=== PATIENT | male | born 1960 | race Caucasian/White ===

== ENCOUNTER → 2016-12-05 | Outpatient (CLI) | payer OTHER ==
--- NOTE | 2016-12-05 16:57 | US ---
EXAMINATION TYPE: US kidneys/renal and bladder DATE OF EXAM: 12/05/2016 COMPARISON: NONE CLINICAL HISTORY: M54.9 DORSALGIA. Patient stated has polycystic kidneys, prior recurrent UTI and sma ll urinary stream with history of prominent prostate gland. EXAM MEASUREMENTS: Right Kidney: 11.5 x 7.8 x 6.2 cm Left Kidney: 11.4 x 7.3 x 6.6 cm Post Void Residual Volume: 3.7 mL Right Kidney: multiple renal cysts throughout kidney with largest seen inferiorly = 5.6 x 5.5 x 5.2cm Left Kidney: multiple renal cysts throughout kidney with largest measured at lower pole = 5.6 x 4.5 x 4.5cm; couple of small hyperechoic foci seen superiorly may be calcified vessel wall. Bladder: not fully distended and prominent prostate is noted inferoposteriorly. Bilateral Jets seen: yes, but only very small right jet is noted compared to left jet Normal Post Void Residual: Yes IMPRESSION: Numerous bilateral renal cortical cysts. No sign of renal obstruction. Possible calculi in the upper pole left kidney.
== END | disposition home or self-care (01) ==
LOC: RADUSWWP 15:50
PROVIDERS: ATTEND Family Medicine
DX: N28.1 Cyst of kidney, acquired (principal)
CPT/HCPCS: 76770

== ENCOUNTER → 2016-12-22 | Outpatient (CLI) | payer OTHER ==
[2016-12-22 17:49] LABS: Blood Urea Nitrogen 14 mg/dL (9-20); Non-African American GFR(MDRD) 56 (>60 ml/min/1.73 sqM)
--- NOTE | 2016-12-22 19:36 | CT ---
EXAMINATION TYPE: CT abdomen pelvis w con DATE OF EXAM: 12/22/2016 COMPARISON: NONE HISTORY: RENAL CYSTS FOUND ON US. CT DLP: 453.0 mGycm Automated exposure control for dose reduction was used. TECHNIQUE: Helical acquisition of images was performed from the lung bases through the pelvis. CONTRAST: Performed with Oral Contrast and with IV Contrast, patient injected with 100 mL of Omnipaque 300. FINDINGS: Lung bases are clear of consolidation. There is no pleural effusion. Liver shows no focal defect. Cody e ducts are not dilated. There is no sign of a pancreatic mass. Spleen appears normal. There is no adrenal mass. There are numerous bilateral renal cortical cysts. The largest measures 6 cm on the right kidney. The re is no retroperitoneal adenopathy. There is curvilinear calcification on the lateral aspect of a la rge cyst on the lateral left kidney. There is no evidence of the solid renal mass. There is no ascites. I see no intestinal wall thickening. There are no dilated loops. Bladder distend s smoothly. There is no sign of a pelvic mass. Prostate is large and measures 5 cm. Appendix appears normal. There is no sign of a bowel obstruction. I see no bony destructive process. There is narrowin g of L5-S1 disc space. There is linear density in the left inguinal region consistent with hernia surgery. There is no evide nce of a hernia. IMPRESSION: NUMEROUS BILATERAL RENAL CORTICAL CYSTS CONSISTENT WITH ADULT TYPE POLYCYSTIC KIDNEY DISEASE. NO ELEN L OBSTRUCTION. THERE IS SOME CURVILINEAR CALCIFICATION ON THE LATERAL ASPECT OF THE LARGEST LEFT ELEN L CORTICAL CYST THAT IS OF DOUBTFUL SIGNIFICANCE. NO HYDRONEPHROSIS. ENLARGED PROSTATE.
== END | disposition home or self-care (01) ==
LOC: RADCTMAIN 17:11
PROVIDERS: ATTEND Urology
DX: N28.1 Cyst of kidney, acquired (principal); N40.1 Benign prostatic hyperplasia with lower urinary tract symptoms
CPT/HCPCS: 82565; 84520; 74177; 36415; Q9967

== ENCOUNTER → 2018-02-13 | Outpatient (CLI) | payer OTHER ==
[2018-02-13 11:22] LABS: Basophils % (A) 1 %; Eosinophils # (A) 0.1 k/uL (0-0.7); Eosinophils % (A) 1 %; HCT 42.2 % (39.0-53.0); Lymphocytes # (A) 1.5 k/uL (1.0-4.8); Lymphocytes % (A) 31 %; MCV 90.8 fL (80.0-100.0); Mean Platelet Volume 6.9; Monocytes # (A) 0.3 k/uL (0-1.0); Monocytes % (A) 7 %; Neutrophils # (A) 2.7 k/uL (1.3-7.7); Neutrophils % (A) 58 %; Platelet Count 194 k/uL (150-450); RBC 4.65 m/uL (4.30-5.90); RDW 13.1 % (11.5-15.5); WBC 4.7 k/uL (3.8-10.6)
[2018-02-13 11:37] LABS: ALT 29 U/L (21-72); AST 20 U/L (17-59)
[2018-02-13 11:54] LABS: T4, Free (Free Thyroxine) 0.89 ng/dL (0.78-2.19)
--- NOTE | 2018-02-14 20:57 | MR ---
EXAMINATION TYPE: MR brain wo/w con DATE OF EXAM: 02/13/2018 COMPARISON: NONE HISTORY: Atypical Migraine Headache per order. Memory loss and cognitive impairment with bilateral he aring loss and left-sided numbness per patient. TECHNIQUE: Multiplanar, multisequence images of the brain and brainstem is performed without and with IV contras t, utilizing 7 mL intravenous Gadavist . FINDINGS: Diffusion weighted images demonstrate no evidence of a recent infarct or other diffusion ab normality. There is no extra-axial fluid collection or significant white matter signal abnormality. The ventricular system and cisternal spaces are normal in size and appearance. The brain volume is age appropriate. Midline structures demonstrate normal morphology. The craniocervical junction appears within normal limits. Post contrast images demonstrate no abnormal enhancement. The dural venous sinuses appear pa tent. The visualized sinuses are clear and the globes are intact. IMPRESSION: No significant finding is seen to account for patient's symptoms.
== END | disposition home or self-care (01) ==
LOC: RADMRIMAIN 10:07
PROVIDERS: ATTEND Psychiatry & Neurology Neurology
DX: G43.009 Migraine without aura, not intractable, without status migrainosus (principal); L71.8 Other rosacea; B35.1 Tinea unguium; L85.3 Xerosis cutis; R41.89 Other symptoms and signs involving cognitive functions and awareness
CPT/HCPCS: 84439; 82607; 84443; 84450; 84460; 85025; 70553; 36415; A9581

== ENCOUNTER 2018-07-31 15:03 | Emergency (ER) | payer OTHER ==
[2018-07-31 15:18] VITALS: BP 141/87; PULSE 84; RESP 18; TEMP 98
--- NOTE | 2018-07-31 15:55 | ED ---
General Adult HPI - General Chief complaint: Recheck/Abnormal Lab/Rx Stated complaint: Drug testing Time Seen by Provider: 07/31/18 15:15 Source: patient, RN notes reviewed, old records reviewed Mode of arrival: ambulatory Limitations: no limitations - History of Present Illness Initial comments: 49-year-old male patient no pertinent past medical history presents ED for a drug test after an accident at work. Patient reportedly dropped a pallet of materials and per [employer] policy he has to come get drug tested. Pt did not suffer any injury. Pt has no other complaints. Systemic: Pt denies fatigue, myalgia, fever/chills, rash. Pt denies weakness, night sweats, weight loss. Neuro: Pt denies headache, visual disturbances, syncope or pre-syncope. HEENT: Pt denies ocular discharge or irritation, otalgia, rhinorrhea, pharyngitis or notable lymphadenopathy. Cardiopulmonary: Pt denies chest pain, SOB, heart palpitations, dyspnea on exertion. Abdominal/GI: Pt denies abdominal pain, n/v/d. : Pt denies dysuria, burning w/ urination, frequency/urgency. Denies new onset urinary or bowel incontinence. MSK: Pt denies myalgia, loss of strength or function in extremities. Neuro: Pt denies new onset weakness, paresthesias. - Related Data Home Medications Medication Instructions Recorded Confirmed No Known Home Medications 03/02/15 03/06/15 Allergies Allergy/AdvReac Type Severity Reaction Status Date / Time No Known Allergies Allergy Verified 03/06/15 09:36 Review of Systems ROS Statement: Those systems with pertinent positive or pertinent negative responses have been documented in the HPI. ROS Other: All systems not noted in ROS Statement are negative. Past Medical History Past Medical History: GI Bleed History of Any Multi-Drug Resistant Organisms: None Reported Past Surgical History: Orthopedic Surgery Past Anesthesia/Blood Transfusion Reactions: No Reported Reaction Smoking Status: Never smoker Past Alcohol Use History: Rare Past Drug Use History: None Reported - Past Family History Mother Family Medical History: Cancer General Exam - General Exam Comments Initial Comments: Constitutional: NAD, AOX3, Pt has pleasant affect. HEENT: NC/AT, trachea midline, neck supple, no lymphadenopathy. Posterior pharynx non erythematous, without exudates. External ears appear normal, without discharge. Mucous membranes moist. Eyes PERRLA, EOM intact. There is no scleral icterus. No pallor noted. Cardiopulmonary: RRR, no murmurs, rubs or gallops, no JVD noted. Lungs CTAB in anterior and posterior martin. No peripheral edema. Abdominal exam: Abdomen soft and non-distended. Abdomen non-tender to palpation in all 4 quadrants. Bowel sounds active in LLQ. No hepatosplenomegaly. No ecchymosis Neuro: CN II-XII grossly intact. No nuchal rigidity. MSK: No posterior calf tenderness bilaterally, homans sign negative bilaterally. Posterior tibialis and radial pulse +2 bilaterally. Sensation intact in upper and lower extremities. Full active ROM in upper and lower extremities, 5/5 stregnth. Limitations: no limitations Course Vital Signs 07/31/18 15:15 Temperature 98 F Pulse Rate 84 Respiratory 18 Rate Blood Pressure 141/87 O2 Sat by Pulse 100 Oximetry Medical Decision Making - Medical Decision Making 49-year-old male patient presented to ED for drug test per company policy. Patient no complaints. Patient's of an injury. Physical exam didn't display any acute pathology. Vital signs stable. Case discussed with Dr. Stoner. Disposition Clinical Impression: Employment-related drug testing, encounter for Disposition: HOME SELF-CARE Condition: Stable Additional Instructions: Patient to adhere to previously discussed treatment plan and will take medication(s) as directed. Patient to follow up with PCP in 1-2 days. Patient to return to ED if symptoms do not improve. Is patient prescribed a controlled substance at d/c from ED?: No Referrals: Manish Cordova DO [Primary Care Provider] - 1-2 days Time of Disposition: 15:55
== END 2018-07-31 16:03 | disposition home or self-care (01) ==
LOC: EC 15:03
DX: Z02.83 Encounter for blood-alcohol and blood-drug test (principal)
CPT/HCPCS: 99282

== ENCOUNTER 2018-10-12 11:16 | Emergency (ER) | payer BC ==
[2018-10-12] MEDS ORDERED: SODIUM CHLORIDE 0.9% 1,000 ML IV STA (11:32)
--- NOTE | 2018-10-12 11:40 | ED ---
General Adult HPI - General Stated complaint: Flu symptoms Time Seen by Provider: 10/12/18 11:20 Source: patient, EMS, RN notes reviewed, old records reviewed Mode of arrival: EMS Limitations: no limitations - History of Present Illness Initial comments: 58-year-old male presents for evaluation of flulike symptoms. Patient was sent in from urgent care with low blood pressure. Patient had blood pressure in the 80s systolic at urgent care. He was sent to the emergency department for evaluation. He complains of approximately 8-10 days of flulike symptoms including nasal congestion, sore throat, productive cough. He's had fever and chills. Myalgias. Denies dysuria or hematuria. He says bilateral sinus pressure and headache. He's felt somewhat foggy and confused. Patient is otherwise healthy with no chronic medical problems. He does report some chest pain worse with cough. - Related Data Home Medications Medication Instructions Recorded Confirmed Ascorbic Acid [Vitamin C] 500 mg PO DAILY 10/12/18 10/12/18 Cholecalciferol [Vitamin D3] 1,000 unit PO DAILY 10/12/18 10/12/18 Multivitamin,Therapeutic [Thera] 1 tab PO DAILY 10/12/18 10/12/18 Vitamin A 8,000 unit PO DAILY 10/12/18 10/12/18 Vitamin E 1,000 unit PO DAILY 10/12/18 10/12/18 Previous Rx's Medication Instructions Recorded Oseltamivir [Tamiflu] 75 mg PO Q12HR #10 cap 10/12/18 Allergies Allergy/AdvReac Type Severity Reaction Status Date / Time No Known Allergies Allergy Verified 10/12/18 12:43 Review of Systems ROS Statement: Those systems with pertinent positive or pertinent negative responses have been documented in the HPI. ROS Other: All systems not noted in ROS Statement are negative. Past Medical History Past Medical History: GI Bleed History of Any Multi-Drug Resistant Organisms: None Reported Past Surgical History: Orthopedic Surgery Additional Past Surgical History / Comment(s): ACL reconstruction Past Anesthesia/Blood Transfusion Reactions: No Reported Reaction Past Psychological History: No Psychological Hx Reported Smoking Status: Never smoker Past Alcohol Use History: None Reported Past Drug Use History: None Reported - Past Family History Mother Family Medical History: Cancer General Exam Limitations: no limitations General appearance: alert, in no apparent distress Head exam: Present: atraumatic, normocephalic Eye exam: Present: normal appearance, PERRL, EOMI. Absent: scleral icterus, periorbital swelling ENT exam: Present: mucous membranes dry, other (Mild pharyngeal erythema) Neck exam: Present: normal inspection. Absent: tenderness, meningismus Respiratory exam: Present: rhonchi. Absent: respiratory distress, wheezes, rales Cardiovascular Exam: Present: regular rate, normal rhythm GI/Abdominal exam: Present: soft. Absent: distended, tenderness Extremities exam: Present: normal inspection, normal capillary refill. Absent: pedal edema Neurological exam: Present: alert, oriented X3, CN II-XII intact. Absent: motor sensory deficit Psychiatric exam: Present: normal affect, normal mood Skin exam: Present: warm, dry, intact. Absent: cyanosis, diaphoretic, erythema Course Vital Signs 10/12/18 10/12/18 11:25 13:38 Temperature 100.2 F H 98.8 F Pulse Rate 86 96 Respiratory 18 16 Rate Blood Pressure 126/72 149/81 O2 Sat by Pulse 97 95 Oximetry Medical Decision Making - Medical Decision Making 58-year-old male presenting with flulike symptoms. Patient does have influenza B. Chest x-rays obtained, negative for focal pneumonia, head CT negative for intracranial hemorrhage or mass effect, no acute findings. CT was performed secondary to persistent headache and some mild confusion. Patient has blood cell count, stable hemoglobin, thrombocytopenia with platelets of 108, he does have hyponatremia sodium 129. Patient's given IV hydration, Tamiflu and Decadron, reevaluation is feeling better. Patient offered observation for continuous IV hydration, reevaluation of hyponatremia, declines, prefers outpatient follow-up. We will have sodium rechecked in 2-3 days. We will maintain oral hydration, Gatorade, chicken soup. - Lab Data Result diagrams: 10/12/18 11:39 10/12/18 11:39 Lab Results 10/12/18 10/12/18 10/12/18 Range/Units 11:39 11:39 11:39 WBC 5.2 (3.8-10.6) k/uL RBC 4.43 (4.30-5.90) m/uL Hgb 13.2 (13.0-17.5) gm/dL Hct 39.1 (39.0-53.0) % MCV 88.3 (80.0-100.0) fL MCH 29.8 (25.0-35.0) pg MCHC 33.8 (31.0-37.0) g/dL RDW 12.6 (11.5-15.5) % Plt Count 108 L (150-450) k/uL Neutrophils % 84 % Lymphocytes % 7 % Monocytes % 7 % Eosinophils % 1 % Basophils % 0 % Neutrophils # 4.4 (1.3-7.7) k/uL Lymphocytes # 0.4 L (1.0-4.8) k/uL Monocytes # 0.4 (0-1.0) k/uL Eosinophils # 0.1 (0-0.7) k/uL Basophils # 0.0 (0-0.2) k/uL Sodium 129 L (137-145) mmol/L Potassium 4.2 (3.5-5.1) mmol/L Chloride 93 L (98-107) mmol/L Carbon Dioxide 30 (22-30) mmol/L Anion Gap 6 mmol/L BUN 13 (9-20) mg/dL Creatinine 0.95 (0.66-1.25) mg/dL Est GFR (CKD-EPI)AfAm >90 (>60 ml/min/1.73 sqM) Est GFR (CKD-EPI)NonAf 88 (>60 ml/min/1.73 sqM) Glucose 100 H (74-99) mg/dL Plasma Lactic Acid Tucker 0.7 (0.7-2.0) mmol/L Calcium 8.3 L (8.4-10.2) mg/dL Total Bilirubin 0.4 (0.2-1.3) mg/dL AST 31 (17-59) U/L ALT 31 (21-72) U/L Alkaline Phosphatase 50 (38-126) U/L Total Protein 6.2 L (6.3-8.2) g/dL Albumin 3.7 (3.5-5.0) g/dL Influenza Type A RNA (Not Detectd) Influenza Type B (PCR) (Not Detectd) 10/12/18 Range/Units 11:52 WBC (3.8-10.6) k/uL RBC (4.30-5.90) m/uL Hgb (13.0-17.5) gm/dL Hct (39.0-53.0) % MCV (80.0-100.0) fL MCH (25.0-35.0) pg MCHC (31.0-37.0) g/dL RDW (11.5-15.5) % Plt Count (150-450) k/uL Neutrophils % % Lymphocytes % % Monocytes % % Eosinophils % % Basophils % % Neutrophils # (1.3-7.7) k/uL Lymphocytes # (1.0-4.8) k/uL Monocytes # (0-1.0) k/uL Eosinophils # (0-0.7) k/uL Basophils # (0-0.2) k/uL Sodium (137-145) mmol/L Potassium (3.5-5.1) mmol/L Chloride (98-107) mmol/L Carbon Dioxide (22-30) mmol/L Anion Gap mmol/L BUN (9-20) mg/dL Creatinine (0.66-1.25) mg/dL Est GFR (CKD-EPI)AfAm (>60 ml/min/1.73 sqM) Est GFR (CKD-EPI)NonAf (>60 ml/min/1.73 sqM) Glucose (74-99) mg/dL Plasma Lactic Acid Tucker (0.7-2.0) mmol/L Calcium (8.4-10.2) mg/dL Total Bilirubin (0.2-1.3) mg/dL AST (17-59) U/L ALT (21-72) U/L Alkaline Phosphatase (38-126) U/L Total Protein (6.3-8.2) g/dL Albumin (3.5-5.0) g/dL Influenza Type A RNA Not Detected (Not Detectd) Influenza Type B (PCR) Detected H (Not Detectd) Disposition Clinical Impression: Influenza B, Hyponatremia Disposition: HOME SELF-CARE Condition: Fair Instructions (If sedation given, give patient instructions): Influenza (ED), Hyponatremia (ED) Additional Instructions: Please follow up with primary care physician regarding Low Sodium Level. Prescriptions: Oseltamivir [Tamiflu] 75 mg PO Q12HR #10 cap Is patient prescribed a controlled substance at d/c from ED?: No Referrals: Manish Cordova DO [Primary Care Provider] - 1-2 days Time of Disposition: 13:50
[2018-10-12 12:01] LABS: ALT 31 U/L (21-72); AST 31 U/L (17-59); Albumin 3.7 g/dL (3.5-5.0); Alkaline Phosphatase 50 U/L (38-126); Anion Gap 6 mmol/L; Blood Urea Nitrogen 13 mg/dL (9-20); Calcium 8.3 mg/dL (8.4-10.2); Carbon Dioxide 30 mmol/L (22-30); Chloride 93 mmol/L (98-107); Glucose 100 mg/dL (74-99); Potassium 4.2 mmol/L (3.5-5.1); Sodium 129 mmol/L (137-145); Total Bilirubin 0.4 mg/dL (0.2-1.3); Total Protein 6.2 g/dL (6.3-8.2)
[2018-10-12 12:23] LABS: Basophils % (A) 0 %; Eosinophils # (A) 0.1 k/uL (0-0.7); Eosinophils % (A) 1 %; HCT 39.1 % (39.0-53.0); HGB 13.2 gm/dL (13.0-17.5); Lymphocytes # (A) 0.4 k/uL (1.0-4.8); Lymphocytes % (A) 7 %; MCH 29.8 pg (25.0-35.0); MCHC 33.8 g/dL (31.0-37.0); MCV 88.3 fL (80.0-100.0); Mean Platelet Volume 6.7; Monocytes # (A) 0.4 k/uL (0-1.0); Monocytes % (A) 7 %; Neutrophils # (A) 4.4 k/uL (1.3-7.7); Neutrophils % (A) 84 %; Platelet Count 108 k/uL (150-450); RBC 4.43 m/uL (4.30-5.90); RDW 12.6 % (11.5-15.5); WBC 5.2 k/uL (3.8-10.6)
--- NOTE | 2018-10-12 12:53 | CT ---
EXAMINATION TYPE: CT brain wo con DATE OF EXAM: 10/12/2018 COMPARISON: NONE HISTORY: headache CT DLP: 1070.4 mGycm. Automated Exposure Control for Dose Reduction was Utilized. TECHNIQUE: CT scan of the head is performed without contrast. FINDINGS: There is no acute intracranial hemorrhage, mass effect, or midline shift identified. No suspicious extra-axial fluid collection. The ventricles and sulci are within normal limits in size. The globes are intact. Moderate mucosal thickening is seen within the ethmoid sinuses. Remaining para nasal sinuses and mastoid air cells are well aerated. IMPRESSION: No acute intracranial hemorrhage, mass effect, or midline shift is seen.
--- NOTE | 2018-10-12 12:58 | XR ---
EXAMINATION TYPE: XR chest 2V DATE OF EXAM: 10/12/2018 COMPARISON: NONE TECHNIQUE: PA and lateral views submitted. HISTORY: Fever FINDINGS: The lungs are clear and there is no pneumothorax, pleural effusion, or focal pneumonia. Arthropathy of the shoulders. Mild hyperinflation correlate for COPD IMPRESSION: 1. No acute process.
[2018-10-12] MEDS ORDERED: OSELTAMIVIR 75 MG CAP PO STA (13:14)
[2018-10-12] MEDS ORDERED: SODIUM CHLORIDE 0.9% 500 ML 500 ML IV ONE (13:25)
[2018-10-12] MEDS ORDERED: SODIUM CHLORIDE 0.9% 1,000 ML IV SCH (13:30)
[2018-10-12 13:39] VITALS: BP 149/81; PULSE 96; RESP 16; TEMP 98.8
[2018-10-12] MEDS ORDERED: DEXAMETHASONE SOD PHOSPHATE 10 MG/ML 1 ML VIAL IV STA (13:47)
[2018-10-12 14:20] LABS: Appearance,Urine Clear (Clear); Bilirubin,Urine Negative (Negative); Blood,Urine Small (Negative); Color,Urine Light Yellow; Glucose,Urine (UA) Negative (Negative); Ketones,Urine 1+ (Negative); Leukocyte Esterase,Urine Negative (Negative); Nitrite,Urine Negative (Negative); Protein,Urine Negative (Negative); RBC,Urine 3 /hpf (0-5); Specific Gravity,Urine 1.004 (1.001-1.035); Urobilinogen,Urine <2.0 mg/dL (<2.0); WBC,Urine <1 /hpf (0-5)
== END 2018-10-12 14:12 | disposition home or self-care (01) ==
LOC: EC 11:16
DX: E87.1 Hypo-osmolality and hyponatremia (principal); J10.1 Influenza due to other identified influenza virus with other respiratory manifestations; D69.6 Thrombocytopenia, unspecified; R07.9 Chest pain, unspecified; Z53.20 Procedure and treatment not carried out because of patient's decision for unspecified reasons
CPT/HCPCS: 36415; 80053; 83605; 85025; 81001; 87040; 87502; 71046; 70450; 99285; 96374; 96361 ×2; J1100

== ENCOUNTER → 2019-08-03 | Outpatient (CLI) | payer OTHER ==
--- NOTE | 2019-08-03 14:40 | XR ---
EXAMINATION TYPE: XR foot complete LT DATE OF EXAM: 08/03/2019 CLINICAL HISTORY: Left foot contusion and pain TECHNIQUE: Frontal, lateral, and oblique images of the left foot are obtained. COMPARISON: None FINDINGS: There is no acute fracture/dislocation evident in the left foot. Small plantar heel spur is incidentally seen. The joint spaces in the left foot appear within normal limits. The overlying s oft tissue appears unremarkable. IMPRESSION: There is no acute fracture or dislocation in the left foot.
== END | disposition home or self-care (01) ==
LOC: RADXRMAIN 13:53
PROVIDERS: ATTEND Emergency Medicine
DX: S90.32XA Contusion of left foot, initial encounter (principal)

== ENCOUNTER → 2019-08-10 | Outpatient (CLI) | payer OTHER ==
--- NOTE | 2019-08-11 00:01 | MR ---
EXAMINATION TYPE: MR foot LT wo con DATE OF EXAM: 08/10/2019 COMPARISON: None HISTORY: contusion L foot Heel pain. TECHNIQUE: Multiplanar multiecho imaging of the left foot was performed without contrast. FINDINGS: There is soft tissue edema at the plantar aspect of the hindfoot. There are small areas of increased signal in the plantar aspect of the calcaneus consistent with mild bone bruise. I see no fracture bertram e. Subtalar joint is intact. The metatarsals are intact. There is no evidence of focal bone destructi on. Joint spaces are fairly normal. Plantar fascia appears normal. There is mild soft tissue edema ar ound the distal second and third and fourth metatarsals. The medial and lateral flexor tendons are in tact. Achilles tendon is intact. IMPRESSION: Soft tissue edema in the plantar aspect of the hindfoot and the forefoot as above. No fracture seen. Mild bone bruise of the posterior subcortical calcaneus.
== END | disposition home or self-care (01) ==
LOC: RADMRIMAIN 09:23
PROVIDERS: ATTEND Emergency Medicine
DX: M79.89 Other specified soft tissue disorders (principal)

== ENCOUNTER 2024-03-12 19:20 | Emergency (ER) | payer SELFPAY ==
[2024-03-12 19:46] VITALS: RESP 18
--- NOTE | 2024-03-12 19:48 | ED ---
URI HPI - General Chief Complaint: Upper Respiratory Infection Stated Complaint: muscle aches Time Seen by Provider: 03/12/24 19:38 Source: patient, RN notes reviewed Mode of arrival: ambulatory Limitations: no limitations - History of Present Illness Initial Comments: 63-year-old male with no significant history presents emergency department accompanied by his sister with chief complaint of generalized bodyaches, headache, fatigue, and fevers. Patient states that symptoms began yesterday. Last took Advil approximately 1300. He denies nausea, vomiting, productive cough, abdominal pain, urinary changes. Denies recent sick contacts that he is aware of. No other acute complaints at this time. - Related Data Home Medications Medication Instructions Recorded Confirmed Ascorbic Acid [Vitamin C] 500 mg PO DAILY 10/12/18 10/12/18 Cholecalciferol [Vitamin D3] 1,000 unit PO DAILY 10/12/18 10/12/18 Multivitamin,Therapeutic [Thera] 1 tab PO DAILY 10/12/18 10/12/18 Vitamin A [Vitamin A (8,000 Units 8,000 unit PO DAILY 10/12/18 10/12/18 = 2,400 MCG)] Vitamin E (Dl,Tocopheryl Acet) 1,000 unit PO DAILY 10/12/18 10/12/18 [Vitamin E] Previous Rx's Medication Instructions Recorded Oseltamivir [Tamiflu] 75 mg PO Q12HR #10 cap 10/12/18 Nirmatrelvir/Ritonavir [Paxlovid 1 each PO DIRECTED #1 each 03/12/24 300-100 mg Dose Pack] Allergies Allergy/AdvReac Type Severity Reaction Status Date / Time No Known Allergies Allergy Verified 10/12/18 12:43 Review of Systems ROS Statement: Those systems with pertinent positive or pertinent negative responses have been documented in the HPI. ROS Other: All systems not noted in ROS Statement are negative. Past Medical History Past Medical History: No Reported History History of Any Multi-Drug Resistant Organisms: None Reported Past Surgical History: Orthopedic Surgery Additional Past Surgical History / Comment(s): ACL reconstruction Past Anesthesia/Blood Transfusion Reactions: No Reported Reaction Past Psychological History: No Psychological Hx Reported Smoking Status: Never smoker Past Alcohol Use History: None Reported Past Drug Use History: None Reported - Past Family History Mother Family Medical History: Cancer General Exam Limitations: no limitations General appearance: alert, in no apparent distress Head exam: Present: atraumatic, normocephalic, normal inspection Eye exam: Present: normal appearance, PERRL, EOMI. Absent: scleral icterus, conjunctival injection, periorbital swelling ENT exam: Present: normal exam, mucous membranes moist Neck exam: Present: normal inspection. Absent: tenderness, meningismus, lymphadenopathy Respiratory exam: Present: normal lung sounds bilaterally. Absent: respiratory distress, wheezes, rales, rhonchi, stridor Cardiovascular Exam: Present: regular rate, normal rhythm, normal heart sounds. Absent: systolic murmur, diastolic murmur, rubs, gallop, clicks GI/Abdominal exam: Present: soft, normal bowel sounds. Absent: distended, tenderness, guarding, rebound, rigid Skin exam: Present: warm, dry, intact, normal color. Absent: rash Course Vital Signs 03/12/24 03/12/24 03/12/24 19:42 21:27 22:19 Temperature 101.8 F H 99.5 F Pulse Rate 105 H 80 Respiratory 18 18 Rate Blood Pressure 147/92 123/80 O2 Sat by Pulse 98 96 Oximetry Medical Decision Making - Medical Decision Making Was pt. sent in by a medical professional or institution (, PA, COMMERCIAL ARTIST, urgent care, hospital, or care home...) When possible be specific @ -No Did you speak to anyone other than the patient for history (EMS, parent, family, police, friend...)? What history was obtained from this source @ -No Did you review nursing and triage notes (agree or disagree)? Why? @ -I reviewed and agree with nursing and triage notes Were old charts reviewed (outside hosp., previous admission, EMS record, old EKG, old radiological studies, urgent care reports/EKG's, care home records)? Report findings @ -No old charts were reviewed Differential Diagnosis (chest pain, altered mental status, abdominal pain women, abdominal pain men, vaginal bleeding, weakness, fever, dyspnea, syncope, headache, dizziness, GI bleed, back pain, seizure, CVA, palpatations, mental health, musculoskeletal)? @ -COVID 19, RSV, influenza, pneumonia, acute bronchitis, URI, this list is not all inclusive EKG interpreted by me (3pts min.). @ -None X-rays interpreted by me (1pt min.). @ -None done CT interpreted by me (1pt min.). @ -None done U/S interpreted by me (1pt. min.). @ -None done What testing was considered but not performed or refused? (CT, X-rays, U/S, labs)? Why? @ -None What meds were considered but not given or refused? Why? @ -None Did you discuss the management of the patient with other professionals (professionals i.e. DrRigoberto, PA, COMMERCIAL ARTIST, lab, RT, psych nurse, social media developer, vacuum forming machine operator, teacher, chief customer officer, shoe caser)? Give summary @ -No Was smoking cessation discussed for >3mins.? @ -No Was critical care preformed (if so, how long)? @ -No Were there social determinants of health that impacted care today? How? (Homelessness, low income, unemployed, alcoholism, drug addiction, tr ansportation, low edu. Level, literacy, decrease access to med. care, long term, rehab)? @ -No Was there de-escalation of care discussed even if they declined (Discuss DNR or withdrawal of care, Hospice)? DNR status @ -No What co-morbidities impacted this encounter? (DM, HTN, Smoking, COPD, CAD, Cancer, CVA, ARF, Chemo, Hep., AIDS, mental health diagnosis, sleep apnea, morbid obesity)? @ -None Was patient admitted / discharged? Hospital course, mention meds given and route, prescriptions, significant lab abnormalities, going to OR and other pertinent info. @ -Discharge. 63-year-old male with cold and flu symptoms. On evaluation patient is febrile with a temperature of 101.8 and tachycardic 105. Patient is provided with Tylenol and Motrin pending results of viral swab. Overall phy sical examination is benign. Patient is positive for COVID. Patient's symptoms began 48 hours ago and therefore is a candidate for antiviral therapy, Paxlovid. Patient sent a prescription for Paxlovid to the pharmacy. Recommend to continue Tylenol Motrin at home. Increase hydration. Follow-up with primary care next week for further evaluation. All questions answered at bedside strict return parameters gabriella the patient is verbalized understanding. Discussed with Dr. Ledbetter Undiagnosed new problem with uncertain prognosis? @ -No Drug Therapy requiring intensive monitoring for toxicity (Heparin, Nitro, Insulin, Cardizem)? @ -No Were any procedures done? @ -No Diagnosis/symptom? @ -COVID Acute, or Chronic, or Acute on Chronic? @ -Acute Uncomplicated (without systemic symptoms) or Complicated (systemic symptoms)? @ -Uncomplicated Side effects of treatment? @ -No Exacerbation, Progression, or Severe Exacerbation? @ -No Poses a threat to life or bodily function? How? (Chest pain, [place], [place], pneumonia, PE, COPD, DKA, ARF, appy, cholecystitis, CVA, Diverticulitis, Homicidal, Suicidal, threat to staff... and all critical care pts) @ -No - Lab Data Lab Results 03/12/24 Range/Units 20:08 Influenza Type A (PCR) Not Detected (Not Detectd) Influenza Type B (PCR) Not Detected (Not Detectd) RSV (PCR) Not Detected (Not Detectd) SARS-CoV-2 (PCR) Detected A (Not Detectd) Disposition Clinical Impression: COVID Disposition: HOME SELF-CARE Condition: Good Instructions (If sedation given, give patient instructions): How to Recover from COVID-19 at Home (ED) Additional Instructions: Return to emergency department for new or worsening symptoms. Complete full course of antiviral as prescribed. Continue Tylenol Motrin at home for symptomatic relief. Increase oral rehydration. Recommend follow up with PCP for further evaluation. Prescriptions: Nirmatrelvir/Ritonavir [Paxlovid 300-100 mg Dose Pack] 1 each PO DIRECTED #1 each Is patient prescribed a controlled substance at d/c from ED?: No Referrals: None,Stated [Primary Care Provider] - 1-2 days Time of Disposition: 22:03
[2024-03-12] MEDS: IBUPROFEN 800 MG TAB PO STA (20:05)
[2024-03-12] MEDS: ACETAMINOPHEN TAB 500 MG TAB PO STA (20:05)
[2024-03-12 21:27] VITALS: TEMP 99.5
[2024-03-12 22:20] VITALS: BP 123/80; PULSE 80
== END 2024-03-12 22:20 | disposition home or self-care (01) ==
LOC: EC 19:20
DX: U07.1 COVID-19 (principal)
CPT/HCPCS: 87636; 99283